=== PATIENT | male | born 1990 | race Caucasian/White ===

== ENCOUNTER 2022-06-04 17:05 | Emergency (ER) | payer BC, MEDICAID ==
[~2022-06-04] VITALS: Ht 182.9 cm; Wt 70.5 kg
--- NOTE | 2022-06-04 17:27 | NUR ---
tech attempted to wrap patient in the ER lobby as requested by registration, tech went out to evaluate pt animal bite to get proper materials to wrap it. Upon tech's reappearance, pt stated they did not want their hand or wrist to be wrapped. Pt stated they did not think it was necessary to wrap it at this time. Tech did not wrap pt.
[2022-06-04 17:37] VITALS: BP 140/87
[2022-06-04] MEDS ORDERED: amox tr/potassium clavulanate 875/125mg TAB PO ONE (18:10)
[2022-06-04] MEDS ORDERED: TETanus/Pertussis (Acell)/Diphther VAC/PF (Tdap-Adult) 0.5ml syringe IMVAC ONE (18:10)
[2022-06-04] MEDS ORDERED: ONDA4TAB12 PO (18:14)
[2022-06-04] MEDS ORDERED: HYDR-3965 PO (18:14)
[2022-06-04] MEDS ORDERED: AMOX-580 PO (18:14)
== END 2022-06-04 19:01 | disposition home or self-care (01) ==
LOC: ER 17:06
DX: S63.273A Dislocation of unspecified interphalangeal joint of left middle finger, initial encounter (principal); S62.603A Fracture of unspecified phalanx of left middle finger, initial encounter for closed fracture; W54.0XXA Bitten by dog, initial encounter; Y93.89 Activity, other specified; Y92.89 Other specified places as the place of occurrence of the external cause; Y99.8 Other external cause status
CPT/HCPCS: 26725; 73140; 90471; 90715; 99284